=== PATIENT | female | born 1955 | race African-American/Black ===

== ENCOUNTER 2024-09-05 18:07 | Emergency (ER) | payer OTHER ==
[~2024-09-05] VITALS: Ht 175.3 cm; Wt 70.0 kg
[~2024-09-05 18:07] MED LIST: VIC; ZOLP1.75
[2024-09-05 18:12] VITALS: BP 114/58; PULSE 68; RESP 16; TEMP 97.7; O2SAT 99
[2024-09-05] MEDS ORDERED: TOPUD MT (20:56)
== END 2024-09-05 21:41 | disposition home or self-care (01) ==
LOC: ER 18:07
DX: H57.89 Other specified disorders of eye and adnexa (principal)
CPT/HCPCS: 99283